=== PATIENT | female | born 1965 | race Caucasian/White ===

== ENCOUNTER 2018-09-01 23:05 | Emergency (ER) | payer SELFPAY ==
[~2018-09-01] VITALS: Ht 165.1 cm; Wt 93.3 kg
[2018-09-01 23:25] VITALS: Ht 165.1 cm; Wt 93.3 kg
[2018-09-02 03:03] VITALS: BP 199/110
[2018-09-02] MEDS ORDERED: AMLODIPINE 10 MG TAB PO ONE (03:30)
[2018-09-02] MEDS ORDERED: LABETALOL HCL 20MG INJ IV ONE (03:30)
--- NOTE | 2018-09-02 03:56 | ERD ---
ER Documentation Chief Complaint Chief Complaint pt stated her right face seems to be swollen, "could be an allergic rxn." HPI This is a 52-year-old female who says that her blood pressure has been severely elevated patient had a medication in [place]. She denies chest pain nausea vomiting fevers chills or chest pain. She denies any other current complaints. Denies any headache. Denies any focal neurological findings. ROS All systems reviewed and are negative except as per history of present illness. Physical Exam Vitals Vital Signs Date Temp Pulse Resp B/P (MAP) Pulse Ox O2 O2 Flow FiO2 Time Delivery Rate 09/02/18 199/110 03:03 (139) 09/01/18 97.8 77 18 207/112 98 23:25 (143) Physical Exam Const: No acute distress Head: Atraumatic Eyes: Normal Conjunctiva ENT: Normal External Ears, Nose and Mouth. Neck: Full range of motion. No meningismus. Resp: Clear to auscultation bilaterally Cardio: Regular rate and rhythm, no murmurs Abd: Soft, non tender, non distended. Normal bowel sounds Skin: No petechiae or rashes Back: No midline or flank tenderness Ext: No cyanosis, or edema Neur: Awake and alert Psych: Normal Mood and Affect Results 24 hrs Current Medications Medications Dose Sig/Damian Start Time Status Last (Trade) Ordered Route PRN Stop Time Admin Dose Reason Admin Labetalol 20 mg ONCE ONCE 09/02/18 DC HCl IV 03:30 09/02/18 (Labetalol) 03:31 Amlodipine 10 mg ONCE ONCE 09/02/18 DC Besylate PO 03:30 09/02/18 (Norvasc) 03:31 Procedures/MDM Medical decision making: This 50-year female with severe uncontrolled hypertension. At this point she is decided to sign AGAINST MEDICAL ADVICE. Upon signing out AMA patient is alert and oriented x4 with goal oriented speech good decision-making passing ability to negotiate the community. She u nderstands the risk of signing out AGAINST MEDICAL ADVICE, including but not limited to due to current condition. She relates these risks and all words and says she will follow-up with her primary care physician. Departure Diagnosis: Primary Impression: Accelerated hypertension Condition: Fair Patient Instructions: High Blood Pressure (Hypertension) BOB CESPEDES Sep 02, 2018 03:56
== END 2018-09-02 03:51 | disposition left against medical advice (07) ==
LOC: E/R 23:05
DX: I10 Essential (primary) hypertension (principal); R40.2142 Coma scale, eyes open, spontaneous, at arrival to emergency department; R40.2252 Coma scale, best verbal response, oriented, at arrival to emergency department; R40.2362 Coma scale, best motor response, obeys commands, at arrival to emergency department
CPT/HCPCS: 99283